=== PATIENT | female | born 1960 | race Two or more races ===

== ENCOUNTER 2025-03-22 15:25 | Emergency (ER) | payer OTHER ==
[~2025-03-22] VITALS: Ht 157.5 cm; Wt 65.8 kg
[2025-03-22] MEDS ORDERED: LIDOCAINE VISCOUS 2% UD 15 ML UDC MM ONE (16:00)
[2025-03-22] MEDS ORDERED: TDAP [DIPH/PERTUSSIS/TET] 0.5 ML VIAL IM ONE (16:02)
[2025-03-22] MEDS ORDERED: AMOXICILLIN TRIHYDRATE 250 MG CAPSULE ONE (16:02)
[2025-03-22] MEDS ORDERED: LIDOCAINE VISCOUS 2% UD 15 ML UDC ONE (16:02)
[2025-03-22] MEDS: AMOXICILLIN TRIHYDRATE 500 MG CAPSULE PO ONE (16:22)
[2025-03-22] MEDS: TDAP [DIPH/PERTUSSIS/TET] 0.5 ML VIAL IM ONE (16:26)
[2025-03-22] MEDS: LIDOCAINE VISCOUS 2% UD 15 ML UDC MM ONE (16:30)
[2025-03-22] MEDS ORDERED: AMOX500C2 PO (21:03)
[2025-03-22 21:32] VITALS: BP 131/79; TEMP 98.1; O2SAT 99
== END 2025-03-22 21:32 | disposition home or self-care (01) ==
LOC: ER 15:42
DX: S01.511A Laceration without foreign body of lip, initial encounter (principal); S80.01XA Contusion of right knee, initial encounter; S80.02XA Contusion of left knee, initial encounter; E11.9 Type 2 diabetes mellitus without complications; I10 Essential (primary) hypertension; W01.0XXA Fall on same level from slipping, tripping and stumbling without subsequent striking against object, initial encounter; Y93.89 Activity, other specified; Y92.89 Other specified places as the place of occurrence of the external cause; Y99.8 Other external cause status
CPT/HCPCS: 70450-TC; 70486-TC; 72125-TC; 73564-TC; 90715